=== PATIENT | female | born 1960 | race Caucasian/White ===

== ENCOUNTER 2022-06-25 07:22 | Emergency (ER) | payer BC ==
--- NOTE | 2022-06-25 07:41 | ERPHSYRPT ---
- History of Present Illness Time Seen by Provider: 06/25/22 07:41 Historian: patient Exam Limitations: no limitations Physician History: This is an obese 62-year-old white female who has had no prior abdominal surgeries and presents with relatively sudden onset of right upper quadrant right side abdominal pain and mild right flank pain with associated multiple episodes of vomiting that occurred this morning. Patient did eat fatty greasy food last evening. Patient has never had anything quite like this before. Patient has had 2 episodes of ureterolithiasis in the past and the symptoms seem different to her. She had no diarrhea. She has no chest pain. She denies shortness of breath. She has had no diarrhea. She has had no fevers or cough. Patient is visiting her sister from [facility]. Timing/Duration: today Activities at Onset: none Quality: sharpness, stabbing Abdominal Pain Onset Location: RUQ Pain Radiation: no radiation Severity of Pain-Max: moderate Severity of Pain-Current: moderate Modifying Factors: Improves With: vomiting Associated Symptoms: diaphoresis, nausea, vomiting, No chest pain, No fever/chills, No shortness of breath Previous symptoms: no prior history, no recent treatment Allergies/Adverse Reactions: amoxicillin [From Augmentin] Allergy (Verified 06/25/22 07:55) cefdinir Allergy (Verified 06/25/22 07:54) cephalexin Allergy (Verified 06/25/22 07:55) clavulanic acid [From Augmentin] Allergy (Verified 06/25/22 07:55) Home Medications: Losartan Potassium 100 mg PO DAILY 06/25/22 [History] Travel Risk - International Travel Have you traveled outside of the country in past 3 weeks: No - Coronavirus Screening Are you exhibiting any of the following symptoms?: No Close contact with a COVID-19 positive Pt in past 14-21 Days: No - Review of Systems Constitutional: No Symptoms Eyes: No Symptoms Ears, Nose, & Throat: No Symptoms, Throat Swelling Cardiac: No Symptoms Abdominal/Gastrointestinal: Abdominal Pain, Nausea, Vomiting, No Diarrhea, No Constipation Genitourinary Symptoms: No Symptoms Musculoskeletal: No Symptoms Skin: No Symptoms Neurological: No Symptoms Psychological: No Symptoms Endocrine: No Symptoms Hematologic/Lymphatic: No Symptoms Immunological/Allergic: No Symptoms All Other Systems: Reviewed and Negative - Past Medical History Pertinent Past Medical History: Yes - Nursing Vital Signs Nursing Vital Signs: Initial Vital Signs Temperature 97.1 F 06/25/22 07:30 Pulse Rate 90 06/25/22 07:30 Blood Pressure 209/127 06/25/22 07:30 O2 Sat by Pulse Oximetry 93 L 06/25/22 07:30 Pain Scale Pain Intensity 2 - Physical Exam General Appearance: mild distress, alert, anxiety, obese Eye Exam: PERRL/EOMI, eyes nml inspection Ears, Nose, Throat Exam: normal ENT inspection, moist mucous membranes Neck Exam: normal inspection, non-tender, supple, full range of motion Respiratory Exam: normal breath sounds, lungs clear, airway intact, No chest tenderness, No respiratory distress Cardiovascular Exam: regular rate/rhythm, normal heart sounds, normal peripheral pulses Gastrointestinal/Abdomen Exam: soft, normal bowel sounds, tenderness, guarding (Right-sided abdominal pain primarily right upper quadrant), No pulsatile mass, No rebound Pelvic Exam: not done Rectal Exam: not done Back Exam: normal inspection, normal range of motion, No CVA tenderness, No vertebral tenderness Extremity Exam: normal inspection, normal range of motion, pelvis stable Neurologic Exam: alert, oriented x 3, cooperative, principal quality engineer II-XII nml as tested, normal mood/affect, nml cerebellar function, nml station & gait, sensation nml Skin Exam: normal color, warm, dry Lymphatic Exam: No adenopathy SpO2 Interpretation: normal O2 Delivery: Room Air - Course Nursing assessment & vital signs reviewed: Yes Ordered Tests: Active Orders 24 hr Category Date Time Status IV Insertion STAT Care 06/25/22 07:55 Active ABDOMEN AND PELVIS W/0 CONTRAS [CT] Stat Exams 06/25/22 07:55 Taken AMYLASE Stat Lab 06/25/22 08:12 Completed CBC W DIFF Stat Lab 06/25/22 08:12 Completed CMP Stat Lab 06/25/22 08:12 Completed LIPASE Stat Lab 06/25/22 08:12 Completed UA W/RFX UR CULTURE Stat Lab 06/25/22 07:57 Completed Medication Summary Discontinued Medications Generic Name Dose Route Start Last Admin Trade Name Freq PRN Reason Stop Dose Admin Hydromorphone HCl 1 mg 06/25/22 07:55 06/25/22 08:12 Hydromorphone 1 Mg/1ml Inj IV 06/25/22 07:56 1 mg STAT ONE Administration Hydromorphone HCl Confirm 06/25/22 08:08 Hydromorphone 1 Mg/1ml Inj Administered 06/25/22 08:09 Dose 1 mg .ROUTE .STK-MED ONE Hydromorphone HCl 1 mg 06/25/22 09:03 06/25/22 09:12 Hydromorphone 1 Mg/1ml Inj IV 06/25/22 09:04 1 mg STAT ONE Administration Hydromorphone HCl Confirm 06/25/22 09:05 Hydromorphone 1 Mg/1ml Inj Administered 06/25/22 09:06 Dose 1 mg .ROUTE .STK-MED ONE Sodium Chloride 1,000 mls @ 999 mls/hr 06/25/22 07:55 06/25/22 09:18 Sodium Chloride 0.9% 1000 Ml IV 06/25/22 08:55 Infused .Q1H1M STA Infusion Sodium Chloride Confirm 06/25/22 08:08 Sodium Chloride 0.9% 1000 Ml Administered 06/25/22 08:09 Dose 1,000 mls @ ud .ROUTE .STK-MED ONE Ketorolac Tromethamine 30 mg 06/25/22 07:55 06/25/22 08:12 Ketorolac Tromethamine 30 Mg/Ml Inj IV 06/25/22 07:56 30 mg STAT ONE Administration Ketorolac Tromethamine Confirm 06/25/22 08:08 Ketorolac Tromethamine 30 Mg/Ml Inj Administered 06/25/22 08:09 Dose 30 mg .ROUTE .STK-MED ONE Ondansetron HCl 4 mg 06/25/22 07:55 06/25/22 08:12 Ondansetron Hcl 4 Mg/2 Ml Vial IV 06/25/22 07:56 4 mg STAT ONE Administration Ondansetron HCl Confirm 06/25/22 08:08 Ondansetron Hcl 4 Mg/2 Ml Vial Administered 06/25/22 08:09 Dose 4 mg .ROUTE .STK-MED ONE Tamsulosin HCl 0.4 mg 06/25/22 09:48 06/25/22 10:09 Tamsulosin Hcl 0.4 Mg Cap PO 06/25/22 09:49 0.4 mg STAT ONE Administration Tamsulosin HCl Confirm 06/25/22 10:09 Tamsulosin Hcl 0.4 Mg Cap Administered 06/25/22 10:10 Dose 0.4 mg .ROUTE .STK-MED ONE Lab/Rad Data: Laboratory Result Diagrams 06/25/22 08:12 06/25/22 08:12 Laboratory Results 06/25/22 06/25/22 06/25/22 Range/Units 08:12 08:12 07:57 WBC 9.1 (4.0-10.5) x10^3/uL RBC 4.69 (4.1-5.4) x10^6/uL Hgb 14.8 (12.0-16.0) g/dL Hct 43.0 (35-47) % MCV 91.7 (78-100) fL MCH 31.6 (26-32) pg MCHC 34.4 (32-36) g/dL RDW 12.0 (11.5-14.0) % Plt Count 264 (150-450) x10^3/uL MPV 9.6 (7.5-11.0) fL Gran % 72.8 H (36.0-66.0) % Immature Gran % (Auto) 0.2 (0.00-0.4) % Nucleat RBC Rel Count 0.0 (0.00-0.1) % Eos # (Auto) 0.11 (0-0.5) x10^3/uL Immature Gran # (Auto) 0.02 (0.00-0.03) x10^3u/L Absolute Lymphs (auto) 1.81 (1.0-4.6) x10^3/uL Absolute Monos (auto) 0.49 (0.0-1.3) x10^3/uL Absolute Nucleated RBC 0.00 (0.00-0.01) x10^3u/L Lymphocytes % 19.9 L (24.0-44.0) % Monocytes % 5.4 (0.0-12.0) % Eosinophils % 1.2 (0.00-5.0) % Basophils % 0.5 (0.0-0.4) % Absolute Granulocytes 6.62 (1.4-6.9) x10^3/uL Basophils # 0.05 (0-0.4) x10^3/uL Sodium 144 (137-145) mmol/L Potassium 4.0 (3.5-5.1) mmol/L Chloride 105 (98-107) mmol/L Carbon Dioxide 26 (22-30) mmol/L Anion Gap 16.2 H (5-15) MEQ/L BUN 27 H (7-17) mg/dL Creatinine 0.97 (0.52-1.04) mg/dL Estimated GFR > 60.0 ML/MIN Glucose 136 H (74-106) mg/dL Calcium 9.7 (8.4-10.2) mg/dL Total Bilirubin 0.50 (0.2-1.3) mg/dL AST 32 (14-36) U/L ALT 25 (0-35) U/L Alkaline Phosphatase 78 (38-126) U/L Serum Total Protein 8.2 (6.3-8.2) g/dL Albumin 4.7 (3.5-5.0) g/dL Amylase 77 (30-110) U/L Lipase 84 (23-300) U/L Urine Color Yellow (Yellow) Urine Appearance Clear (Clear) Urine pH 7.5 (4.6-8.0) Ur Specific [place] 1.025 (1.005-1.030) Urine Protein Trace A (Negative) Urine Glucose (UA) Negative (Negative) mg/dL Urine Ketones Negative (Negative) Urine Blood Negative (Negative) Urine Nitrite Negative (Negative) Urine Bilirubin Negative (Negative) Urine Urobilinogen 0.2 (0.2) mg/dL Ur Leukocyte Esterase Negative (Negative) U Hyaline Cast (Auto) NONE SEEN (0-2) /LPF Urine Microscopic RBC 3-5 (0-5) /HPF Urine Microscopic WBC 0-2 (0-5) /HPF Ur Epithelial Cells None Seen (None Seen) /HPF Urine Bacteria None Seen (None Seen) /HPF Urine Culture Reflexed NO (NO) - Progress Progress: improved, pain not gone completely, re-examined Progress Note: 06/25/22 09:39 The CAT scan of the abdomen pelvis without contrast report was called to me by the radiology group. The patient has a 3 mm ureteral stone with ureteral dilation and hydronephrosis present. In addition the patient has cholelithiasis with mild cholecystitis present. This patient has a medical issue of moderate complexity. The level of complexity in the work-up performed is based on the review of the patient's past medical history, review of the patient's medication list, review of the patient's drug allergy list as well as history of present illness and finding on physical examination. The work-up performed includes CBC, CMP, urinalysis, amylase, lipase, CAT scan of the abdomen pelvis without contrast. We provided the patient with intravenous fluid of normal saline as well as injection of Dilaudid intravenously, Zofran intravenously and Zofran intravenously. The patient did not take her blood pressure medication this morning and her blood pressure readings were high. However her symptoms improved when she took her blood pressure medicine here in the emergency department. Patient has ure terolithiasis as well as cholelithiasis without cholecystitis. I did receive the phone call reports and I am waiting the written report prior to discharging the patient to home. She will be given a prescription for narcotic pain medicine, antiemetic, Flomax and an antibiotic if indicated. We are awaiting her urinalysis. 06/25/22 11:26 Clinically, the patient states she is feeling better. Her nausea and vomiting has subsided. She has taken her blood pressure medication. She does not want any intravenous blood pressure medication. She states he is fearful that this would bottom her blood pressure out. I had asked her on 2 different occasions when evaluating her. We are still awaiting her urinalysis before discharge. Counseled pt/family regarding: lab results, diagnosis, need for follow-up, rad results Medical Desision Making - Independent Historian Additional History obtained from: Family (Sister) - Discussion of managment Agreed on:: Treatment plan, need for follow-up - Diagnostic Testing Diagnostic test were ordered, analyzed, and reviewed by me: Yes Radiological Interpretation: Reviewed by me, Teleradiologist Report - Risk of complications The pt has a mod risk of morbidity or mortality based on: Need for prescription drug management - Departure Departure Disposition: Home Clinical Impression: Ureterolithiasis, Cholelithiasis, Hypertension Condition: Stable Critical Care Time: No Referrals: DOCTOR,NO FAMILY [Primary Care Provider] - Follow up/PCP as directed Additional Instructions: Drink plenty of fluids. Avoid fatty greasy spicy foods. Take your medications as prescribed. Follow-up with your primary care provider for further evaluation management. Prescriptions: Ondansetron ODT 4 MG [Zofran Odt 4 mg] 4 mg PO Q6H PRN PRN #10 tablet PRN Reason: Vomiting Hydrocodone/APAP 5/325 [[place] 5/325 mg] 1 each PO Q8H PRN PRN #6 tablet MDD 3 PRN Reason: Pain Tamsulosin HCl 0.4 mg [Flomax 0.4 MG] 0.4 mg PO DAILY #7 cap
[2022-06-25 07:50] VITALS: PULSE 90
[2022-06-25] MEDS ORDERED: Zofran 4 MG/2 ML VIAL IV ONE (07:55)
[2022-06-25] MEDS ORDERED: TORAdol 30 mg Injection IV ONE (07:55)
[2022-06-25] MEDS ORDERED: Hydromorphone 1 mg/ml Injection IV ONE ×2 (07:55→09:03)
[2022-06-25] MEDS ORDERED: Sodium Chloride 0.9% 1000 ML 1,000 ML IV STA (07:55)
[2022-06-25] MEDS ORDERED: Sodium Chloride 0.9% 1000 ML 1,000 ML ONE (08:08)
[2022-06-25] MEDS ORDERED: Zofran 4 MG/2 ML VIAL ONE (08:08)
[2022-06-25] MEDS ORDERED: TORAdol 30 mg Injection ONE (08:08)
[2022-06-25] MEDS ORDERED: Hydromorphone 1 mg/ml Injection ONE ×2 (08:08→09:05)
[2022-06-25 08:21] LABS: Absolute Neutrophil Ct (ANC) 6.62 x10^3/uL (1.4-6.9); BASOPHIL % 0.5 % (0.0-0.4); Basophil (Absolute #) 0.05 x10^3/uL (0-0.4); Eosinophil % 1.2 % (0.00-5.0); Eosinophil (Absolute #) 0.11 x10^3/uL (0-0.5); Hemoglobin 14.8 g/dL (12.0-16.0); IMMATURE GRAN # 0.02 x10^3u/L (0.00-0.03); IMMATURE GRAN % 0.2 % (0.00-0.4); Lymphocyte (Absolute #) 1.81 x10^3/uL (1.0-4.6); Lymphocytes % 19.9 % (24.0-44.0); Mean Cell Volume 91.7 fL (78-100); Mean Corpuscular Hemoglobin 31.6 pg (26-32); Mean Corpuscular Hgb Concent. 34.4 g/dL (32-36); Mean Platelet Volume 9.6 fL (7.5-11.0); Monocyte (Absolute #) 0.49 x10^3/uL (0.0-1.3); Monocytes % 5.4 % (0.0-12.0); Neutrophil % 72.8 % (36.0-66.0); Platelet Count 264 x10^3/uL (150-450); Red Blood Count 4.69 x10^6/uL (4.1-5.4); White Blood Count 9.1 x10^3/uL (4.0-10.5)
[2022-06-25 08:37] LABS: ALBUMIN 4.7 g/dL (3.5-5.0); ALKALINE PHOSPHATASE 78 U/L (38-126); AMYLASE 77 U/L (30-110); ANION GAP 16.2 MEQ/L (5-15); BLOOD UREA NITROGEN 27 mg/dL (7-17); CHLORIDE 105 mmol/L (98-107); Calcium 9.7 mg/dL (8.4-10.2); Carbon Dioxide 26 mmol/L (22-30); Creatinine 1 0.97 mg/dL (0.52-1.04); EST GLOMERULAR FILTRATION RATE > 60.0 ML/MIN; Glucose 136 mg/dL (74-106); LIPASE 84 U/L (23-300); SGOT/AST 32 U/L (14-36); SGPT/ALT 25 U/L (0-35); SODIUM 144 mmol/L (137-145); Total Protein 8.2 g/dL (6.3-8.2)
[2022-06-25] MEDS ORDERED: Flomax 0.4 MG PO ONE (09:48)
[2022-06-25] MEDS ORDERED: Flomax 0.4 MG ONE (10:09)
[2022-06-25 10:59] LABS: Appearance Clear (Clear); Bilirubin Negative (Negative); Blood Negative (Negative); Glucose, Urine Negative (Negative); Ketones Negative (Negative); Leukocyte Esterase Negative (Negative); Nitrite Negative (Negative); Ph 7.5 (4.6-8.0); Protein,Urine Dip Trace (Negative); Specific Gravity 1.025 (1.005-1.030); Urobilinogen 0.2 mg/dL (0.2)
[2022-06-25 11:19] LABS: Bacteria None Seen /HPF (None Seen); Epithelial Cells None Seen /HPF (None Seen); Hyaline Casts NONE SEEN /LPF (0-2); WBC 0-2 /HPF (0-5)
[2022-06-25 11:21] VITALS: O2SAT 97
[2022-06-25 11:26] LABS: ADD URINE CULTURE? NO (NO)
[2022-06-25] MEDS ORDERED: PERCOCET TABLET 5/325MG PO STA (11:37)
[2022-06-25] MEDS ORDERED: PERCOCET TABLET 5/325MG ONE (11:39)
[2022-06-25 11:50] VITALS: BP 205/119
--- NOTE | 2022-06-26 17:01 | XRAY ---
CLINICAL HISTORY:Vomiting, R flank pain; COMPARISON:None; TECHNIQUES:CT scan of the abdomen and pelvis without intravenous contrast administration. Total DLP 1017.2 mGy*cm. CTDI 21.44 mGy; FINDINGS: The liver is of average size, regular contour, and homogeneous texture with no focal lesion that could be detected on non-contrast basis. No intra hepatic biliary radical dilatation. The GB is distended and harbors a few stones inside. No evidence of acute cholecystitis. The spleen is of average size and shape with homogeneous parenchyma and no focal lesion could be noted on a non-contrast basis. Both kidneys are of normal size, shape, and parenchymal thickness. The right kidney shows mild back pressure changes with no stones. The left kidney shows no stones, back pressure changes, or space-occupying lesions on non-contrast basis. The right ureter harbors a 3 mm stone impacted at the vesicoureteric junction causing proximal dilatation. The other retroperitoneal structures including the pancreas and adrenal glands are grossly within normal limits. No significant lymph michele enlargement or ascetic fluid collection. The uterus is not visualized likely surgically removed. The urinary bladder is inadequately filled with urine. There is air lucency seen inside. No stones. Bone window settings showed reduced osseous mineralization, degenerative changes of the lumbar spine, and L4-L5 grade I spondylolisthesis. Lung window settings showed a normal appearance of both basal lung segments. IMPRESSION: 1. Distal right ureteric obstructive stone with mild hydronephrosis. 2. Cholelithiasis. 3. Urinary bladder air locules which could be due to previous instrumentation versus emphysematous cystitis. Clinical correlation and follow-up are advised. [facility] ER was called at [phone] at 8:38 AM DIE FINISHER, 06/25/2022 and results were verbally communicated to Lanre Reyes. Electronically Signed by: Dav Martinez MD. (06/25/2022 08:40:43 DIE FINISHER)
== END 2022-06-25 11:50 | disposition home or self-care (01) ==
LOC: ED 07:22
DX: N13.2 Hydronephrosis with renal and ureteral calculous obstruction (principal); K80.20 Calculus of gallbladder without cholecystitis without obstruction; I10 Essential (primary) hypertension; Z79.899 Other long term (current) drug therapy; Z20.828 Contact with and (suspected) exposure to other viral communicable diseases
CPT/HCPCS: 36415; 74176; 80053; 81001; 82150; 83690; 85025; 96360; 96374; 96375; 96376; 99284; J1170; J1885; J2405; A9270-GY